=== PATIENT | female | born 1985 | race Caucasian/White ===

== ENCOUNTER → 2016-04-29 | Outpatient (CLI) | payer OTHER ==
[~2016-04-29] MED LIST: ADDERALL10 MG PO; ALDOMET250 MG PO; AMBIEN10 MG PO; ANAPROX DS550 MG PO; AUGMENTIN 875 M1 TA1 PO; AUGMENTIN 875 M1 TAB PO; BACTRIM DS 8001 TA1 PO; BENADRYL25 MG PO; CELEXA20 MG PO; CIPRO500 MG PO; CIPRODEX 0.3%-7.5 ML OT; CITALOPRAM HYDR20 MG PO; CLARITIN10 MG PO; CLEOCIN150 MG PO; CLINDA DERM T; CYCLOBENZAPRINE10 MG PO; DICLOFENAC POT.50 MG PO; FLAGYL500 MG PO; HYDR12.5C PO; IBU-8800 MG PO; IBU800 M1 PO; IBUPROFEN800 MG PO; INDERAL10 MG PO; K-DUR 20MEQ20 MEQ PO; K-EFFERVESCENT25 MEQ PO; KEFLEX500 MG PO; LISINOPRIL-HYDR1 TA3 PO; LISINOPRIL2.5 MG PO; LISINOPRIL20 MG PO; LOMOTIL 0.025 M1 TA1 PO; LOPRESSOR25 MG PO; Lopressor25 MG PO; MACROBID100 M1 PO; MIRALAX POWDER255 GM PO; MOTRIN800 MG PO; MYCELEX TROCHE10 MG MM; NAPROXEN500 MG PO; NATURE'S BLEND F1 MG PO; OMNICEF300 MG PO; PERCOCET 325 MG1 TA2 PO; POTASSIUM CITR10 ME1 PO; PRENATAL1 TA1 PO; PRENATAL1 TA7 PO; PRILOSEC20 M1 PO; PRISTIQ50 MG PO; PROTONIX20 MG PO; PROVENTIL0.09 MG/AC IH; PYRIDIUM200 M1 PO; PYRIDIUM200 MG PO; SALINE MIST 4545 ML NAS; Synthroid,Levo50 MCG PO; TAMIFLU75 MG PO; TRAMADOL HCL50 MG PO; TRAZODONE50 MG PO; TRIMOX500 MG PO; TYLENOL PM1 CAP PO; TYLENOL W/CODEI1 TA2 PO; ULTRAM50 MG PO; VICODIN 5/500 505 MG PO; VICODIN ES 7501 TAB PO; VISTARIL50 MG PO; VITAMIN D-32000 UNI1 PO; VYVANSE50 MG PO; WOMEN'S DAILY1 EAC2 PO; XANAX PO; XANAX0.5 MG PO; XANAX1 MG PO; ZITHROMAX Z PA250 MG PO; ZOFRAN ODT4 MG SL; ZOFRAN ODT8 MG PO; ZOFRAN4 MG PO; Zofran4 MG PO
[2016-04-29 09:23] LABS: BASO % 0.6 % (0.0-1.0); EOS # 0.3 10*3/uL (0.0-0.4); HEMOGLOBIN 14.6 g/dl (12.0-16.0); LYMPH # 2.2 10*3/uL (1.3-4.4); LYMPH % 32.6 % (27.0-41.0); MEAN CELL VOLUME 85.9 fl (81.0-99.0); MEAN CORPUSCULAR HGB 29.9 pg (27.0-31.0); MEAN CORPUSCULAR HGB CONC 34.8 g/dl (33.0-37.0); MEAN PLATELET VOLUME 10.8 fl (9.6-12.3); MONO # 0.8 10*3/uL (0.1-1.0); NEUT # 3.5 10*3/uL (2.3-7.9); NEUT % 51.5 % (47.0-73.0); PLATELET COUNT AUTOMATED 230 10*3/uL (130-400); RED BLOOD COUNT 4.89 10*6/uL (4.10-5.10); RED CELL DISTRI WIDTH 12.2 % (0-14.5); WHITE BLOOD COUNT 6.8 10*3/uL (4.8-10.8)
[2016-04-29 09:53] LABS: ALBUMIN 3.7 gm/dl (3.1-4.5); ALKALINE PHOSPHATASE 76 U/L (45-117); BILIRUBIN, TOTAL 0.2 mg/dl (0.2-1.0); BUN 11 mg/dl (7-24); CARBON DIOXIDE 27 mmol/L (21-32); CHLORIDE 104 mmol/L (98-107); CHOLESTEROL 124 mg/dL (<200); EST GLOM FILT AFRICAN AMERICAN > 60 ml/min; GLUCOSE 115 mg/dL (65-99); HDL CHOLESTEROL 37 mg/dl (40-60); LDL CHOLESTEROL 64 mg/dL (9-159); POTASSIUM 3.2 mmol/L (3.5-5.1); SGOT/AST 16 IU/L (3-35); SGPT/ALT 43 U/L (12-78); SODIUM 142 mmol/L (136-145); TRIGLYCERIDES 113 mg/dl (<150); VLDL CHOLESTEROL 23 mg/dL (6-40)
== END | disposition home or self-care (01) ==
LOC: LAB 08:46
PROVIDERS: Nurse Practitioner
DX: D35.2 Benign neoplasm of pituitary gland (principal); I10 Essential (primary) hypertension; E03.9 Hypothyroidism, unspecified

== ENCOUNTER 2016-08-25 15:48 | Emergency (ER) | payer OTHER ==
[~2016-08-25] VITALS: Ht 162.5 cm; Wt 81.6 kg
[2016-08-25] MEDS ORDERED: VITAMIN D50000 I3 PO (15:57)
[2016-08-25] MEDS ORDERED: WELLBUTRIN SR150 MG PO (15:58)
[2016-08-25] MEDS ORDERED: ADDERALL 30 MG30 MG PO (15:58)
[2016-08-25 16:26] LABS: BASO # 0.1 10*3/uL (0.0-0.1); BASO % 0.6 % (0.0-1.0); EOS # 0.3 10*3/uL (0.0-0.4); EOS % 3.5 % (1.0-4.0); HEMATOCRIT 42.5 % (37.0-47.0); LYMPH # 3.1 10*3/uL (1.3-4.4); LYMPH % 37.6 % (27.0-41.0); MEAN CELL VOLUME 88.7 fl (81.0-99.0); MEAN CORPUSCULAR HGB 31.3 pg (27.0-31.0); MEAN CORPUSCULAR HGB CONC 35.3 g/dl (33.0-37.0); MEAN PLATELET VOLUME 10.4 fl (9.6-12.3); MONO # 0.7 10*3/uL (0.1-1.0); MONO % 8.5 % (3.0-9.0); NEUT # 4.1 10*3/uL (2.3-7.9); NEUT % 49.6 % (47.0-73.0); PLATELET COUNT AUTOMATED 253 10*3/uL (130-400); RED BLOOD COUNT 4.79 10*6/uL (4.10-5.10); RED CELL DISTRI WIDTH 12.5 % (0-14.5); WHITE BLOOD COUNT 8.2 10*3/uL (4.8-10.8)
[2016-08-25 16:42] LABS: ALBUMIN 3.8 gm/dl (3.1-4.5); ALKALINE PHOSPHATASE 85 U/L (45-117); BILIRUBIN, TOTAL 0.5 mg/dl (0.2-1.0); BUN 9 mg/dl (7-24); CARBON DIOXIDE 23 mmol/L (21-32); CHLORIDE 107 mmol/L (98-107); EST GLOM FILT AFRICAN AMERICAN > 60 ml/min; GLUCOSE 85 mg/dL (65-99); POTASSIUM 3.1 mmol/L (3.5-5.1); SGOT/AST 18 IU/L (3-35); SGPT/ALT 44 U/L (12-78); SODIUM 141 mmol/L (136-145); TOTAL PROTEIN 7.5 gm/dL (6.4-8.2)
[2016-08-25 16:47] LABS: BILIRUBIN NEGATIVE (NEGATIVE); BLOOD NEGATIVE (NEGATIVE); CLARITY SL CLOUDY (CLEAR); COLOR YELLOW (YELLOW); GLUCOSE NEGATIVE (NEGATIVE); KETONE NEGATIVE (NEGATIVE); LEUKO ESTERASE NEGATIVE (NEGATIVE); NITRITE NEGATIVE (NEGATIVE); PROTEIN NEGATIVE (NEGATIVE); SPECIFIC GRAVITY 1.025 (1.005-1.030); UROBILINOGEN 0.2 E.U./dl (0.2-1.0)
[2016-08-25 16:55] LABS: BACTERIA 2+; RBC 0-2 rbc/hpf (0-2); URINE REFLEX COMMENT YES (NO)
[2016-08-25] MEDS ORDERED: NAPROSYN500 MG PO (17:26)
== END 2016-08-25 17:27 | disposition home or self-care (01) ==
LOC: ED 15:48
PROVIDERS: Physician Assistant
DX: R10.11 Right upper quadrant pain (principal); F17.200 Nicotine dependence, unspecified, uncomplicated; Z90.49 Acquired absence of other specified parts of digestive tract; Z88.6 Allergy status to analgesic agent; Z88.8 Allergy status to other drugs, medicaments and biological substances; Z91.040 Latex allergy status; Z79.899 Other long term (current) drug therapy

== ENCOUNTER → 2017-01-03 | Outpatient (CLI) | payer OTHER ==
[~2017-01-03] MED LIST changes: +ADDERALL 30 MG30 MG PO; +NAPROSYN500 MG PO; +VITAMIN D50000 I3 PO; +WELLBUTRIN SR150 MG PO
== END | disposition home or self-care (01) ==
LOC: US 10:18
DX: R94.5 Abnormal results of liver function studies (principal); Z90.49 Acquired absence of other specified parts of digestive tract

== ENCOUNTER → 2017-04-18 | Outpatient (CLI) | payer OTHER | END | disposition home or self-care (01) | LOC: CARD 10:18 | DX: I10 Essential (primary) hypertension (principal) ==

== ENCOUNTER 2019-02-19 17:24 | Emergency (ER) | payer OTHER ==
[~2019-02-19] VITALS: Ht 162.5 cm; Wt 84.4 kg
== END 2019-02-19 19:37 | disposition home or self-care (01) ==
LOC: ED 17:24
DX: N83.202 Unspecified ovarian cyst, left side (principal); N89.8 Other specified noninflammatory disorders of vagina; K21.9 Gastro-esophageal reflux disease without esophagitis; G43.909 Migraine, unspecified, not intractable, without status migrainosus; I10 Essential (primary) hypertension; E03.9 Hypothyroidism, unspecified; Z90.49 Acquired absence of other specified parts of digestive tract; Z90.710 Acquired absence of both cervix and uterus; Z88.5 Allergy status to narcotic agent; Z91.040 Latex allergy status; Z88.8 Allergy status to other drugs, medicaments and biological substances; Z79.899 Other long term (current) drug therapy; Z85.41 Personal history of malignant neoplasm of cervix uteri

== ENCOUNTER → 2019-03-06 | Outpatient (CLI) | payer OTHER | LOC: US 01-05 15:00 | DX: N83.292 Other ovarian cyst, left side (principal); Z90.710 Acquired absence of both cervix and uterus ==

== ENCOUNTER 2019-04-24 16:23 | Emergency (ER) | payer OTHER ==
[~2019-04-24] VITALS: Ht 160 cm; Wt 79.8 kg
[2019-04-24 17:47] LABS: BASO % 0.3 % (0.0-1.0); EOS # 0.3 10*3/uL (0.0-0.4); EOS % 2.8 % (1.0-4.0); HEMATOCRIT 41.8 % (37.0-47.0); HEMOGLOBIN 14.3 g/dl (12.0-16.0); LYMPH # 2.5 10*3/uL (1.3-4.4); LYMPH % 26.9 % (27.0-41.0); MEAN CELL VOLUME 89.7 fl (81.0-99.0); MEAN CORPUSCULAR HGB 30.7 pg (27.0-31.0); MEAN CORPUSCULAR HGB CONC 34.2 g/dl (33.0-37.0); MEAN PLATELET VOLUME 10.7 fl (9.6-12.3); MONO # 0.7 10*3/uL (0.1-1.0); MONO % 7.2 % (3.0-9.0); NEUT # 5.8 10*3/uL (2.3-7.9); NEUT % 62.4 % (47.0-73.0); PLATELET COUNT AUTOMATED 243 10*3/uL (130-400); RED BLOOD COUNT 4.66 10*6/uL (4.10-5.10); RED CELL DISTRI WIDTH 12.4 % (0-14.5); WHITE BLOOD COUNT 9.3 10*3/uL (4.8-10.8)
[2019-04-24 18:02] LABS: ALBUMIN 3.5 gm/dl (3.1-4.5); ALKALINE PHOSPHATASE 77 U/L (45-117); BUN 7 mg/dl (7-24); CHLORIDE 107 mmol/L (98-107); CREATININE 0.62 mg/dL (0.55-1.02); LIPASE 33 U/L (73-393); POTASSIUM 3.2 mmol/L (3.5-5.1); SGOT/AST 11 IU/L (3-35); SGPT/ALT 32 U/L (12-78); SODIUM 141 mmol/L (136-145); TOTAL PROTEIN 6.9 gm/dL (6.4-8.2)
[2019-04-24 18:34] LABS: BILIRUBIN NEGATIVE (NEGATIVE); BLOOD NEGATIVE (NEGATIVE); CLARITY SL CLOUDY (CLEAR); COLOR YELLOW (YELLOW); GLUCOSE NEGATIVE (NEGATIVE); KETONE NEGATIVE (NEGATIVE); LEUKO ESTERASE NEGATIVE (NEGATIVE); NITRITE NEGATIVE (NEGATIVE); PH 6.5 (5.0-9.0); UROBILINOGEN 0.2 E.U./dl (0.2-1.0)
[2019-04-24 18:40] LABS: BACTERIA 2+; MUCOUS 3+; WBC 0-2 wbc/hpf (0-5)
[2019-04-24] MEDS ORDERED: DICYCLOMINE HYD20 MG PO (19:00)
[2019-04-24] MEDS ORDERED: ANAPROX DS550 MG PO (19:00)
[2019-04-24] MEDS ORDERED: ZOFRAN4 MG PO (19:02)
== END 2019-04-24 19:11 | disposition home or self-care (01) ==
LOC: ED 16:23
PROVIDERS: Physician Assistant
DX: N83.201 Unspecified ovarian cyst, right side (principal); Z88.8 Allergy status to other drugs, medicaments and biological substances; Z91.040 Latex allergy status; Z88.5 Allergy status to narcotic agent; Z79.899 Other long term (current) drug therapy

== ENCOUNTER → 2019-08-15 | Outpatient (CLI) | payer OTHER ==
[~2019-08-15] MED LIST changes: +DICYCLOMINE HYD20 MG PO
== END | disposition home or self-care (01) ==
LOC: US 07-26 10:30
DX: N83.202 Unspecified ovarian cyst, left side (principal)

== ENCOUNTER → 2019-10-10 | Outpatient (CLI) | payer OTHER | END | disposition home or self-care (01) | LOC: RAD 10:42 | PROVIDERS: ATTEND Nurse Practitioner Family | DX: R05 Cough (principal); R06.2 Wheezing ==

== ENCOUNTER 2019-11-05 09:00 | Emergency (ER) | payer OTHER ==
[2019-11-05] MEDS ORDERED: METHOCARBAMOL500 M1 PO (11:31)
[2019-11-05] MEDS ORDERED: MEDROL DOSEPAK4 MG PO (11:31)
== END 2019-11-05 11:40 | disposition home or self-care (01) ==
LOC: ED 09:00
DX: S16.1XXA Strain of muscle, fascia and tendon at neck level, initial encounter (principal); Z88.5 Allergy status to narcotic agent; Z91.040 Latex allergy status; Z88.8 Allergy status to other drugs, medicaments and biological substances; Z79.899 Other long term (current) drug therapy; Z79.2 Long term (current) use of antibiotics; V89.2XXA Person injured in unspecified motor-vehicle accident, traffic, initial encounter; Y93.89 Activity, other specified; Y92.89 Other specified places as the place of occurrence of the external cause; Y99.8 Other external cause status

== ENCOUNTER → 2020-02-21 | Outpatient (CLI) | payer OTHER ==
[~2020-02-21] MED LIST changes: +BUSPAR15 MG PO; +LATU20TA PO; +LINZESS145 MC1 PO; +MEDROL DOSEPAK4 MG PO; +METHOCARBAMOL500 M1 PO; +Motrin,Rufen800 MG PO; +VALIUM10 MG PO; +VYVANSE30 MG PO
== END | disposition home or self-care (01) ==
LOC: COVID19 13:46
PROVIDERS: ATTEND Obstetrics & Gynecology
DX: Z11.52 Encounter for screening for COVID-19 (principal)

== ENCOUNTER → 2020-02-21 | Outpatient (CLI) | payer OTHER ==
[2020-02-21 14:12] LABS: HEMATOCRIT 45.4 % (37.0-47.0); MEAN CELL VOLUME 85.8 fl (81.0-99.0); MEAN CORPUSCULAR HGB 29.9 pg (27.0-31.0); MEAN CORPUSCULAR HGB CONC 34.8 g/dl (33.0-37.0); MEAN PLATELET VOLUME 10.4 fl (9.6-12.3); PLATELET COUNT AUTOMATED 332 10*3/uL (130-400); RED BLOOD COUNT 5.29 10*6/uL (4.10-5.10); RED CELL DISTRI WIDTH 11.8 % (0-14.5); WHITE BLOOD COUNT 11.7 10*3/uL (4.8-10.8)
[2020-02-21 14:20] LABS: ALBUMIN 4.2 gm/dl (3.1-4.5); ALKALINE PHOSPHATASE 73 U/L (45-117); BUN 7 mg/dl (7-24); CHLORIDE 106 mmol/L (98-107); CREATININE 0.59 mg/dL (0.55-1.02); POTASSIUM 3.5 mmol/L (3.5-5.1); SGOT/AST 17 IU/L (3-35); SGPT/ALT 48 U/L (12-78); SODIUM 139 mmol/L (136-145); TOTAL PROTEIN 7.9 gm/dL (6.4-8.2)
[2020-02-21 14:31] LABS: ATYPICAL LYMPHS 4 % (0-0); PLATELET SUFFICIENCY NORMAL (NORMAL); TOTAL CELLS COUNTED 100 #CELLS
[2020-02-21 14:32] LABS: MICROCYTOSIS SLIGHT
== END | disposition home or self-care (01) ==
LOC: LAB 12:40
PROVIDERS: ATTEND Obstetrics & Gynecology
DX: R10.2 Pelvic and perineal pain (principal); J94.8 Other specified pleural conditions

== ENCOUNTER → 2020-02-25 | Outpatient (CLI) | payer OTHER | END | disposition home or self-care (01) | LOC: CARD 13:30 | PROVIDERS: ATTEND Obstetrics & Gynecology | DX: Z01.810 Encounter for preprocedural cardiovascular examination (principal); N94.10 Unspecified dyspareunia; R10.2 Pelvic and perineal pain ==

== ENCOUNTER → 2020-02-26 | Day surgery (SDC) | payer OTHER ==
[2020-02-21 13:02] VITALS: BP 118/73
[~2020-02-26] VITALS: Ht 162.5 cm; Wt 82.6 kg
[2020-02-26 07:11] VITALS: BP 127/81
[2020-02-26 09:07] VITALS: BP 130/64
[2020-02-26 09:12] VITALS: BP 135/81
[2020-02-26 09:27] VITALS: BP 123/71
[2020-02-26 09:42] VITALS: BP 119/47
[2020-02-26 09:57] VITALS: BP 123/71
== END ==
LOC: SDC 02-21 12:30
PROVIDERS: ATTEND Obstetrics & Gynecology
DX: N94.10 Unspecified dyspareunia (principal); N80.0 Endometriosis of uterus; R10.2 Pelvic and perineal pain; G89.29 Other chronic pain; K21.9 Gastro-esophageal reflux disease without esophagitis; F41.9 Anxiety disorder, unspecified; I10 Essential (primary) hypertension; G43.909 Migraine, unspecified, not intractable, without status migrainosus; F32.9 Major depressive disorder, single episode, unspecified; F90.9 Attention-deficit hyperactivity disorder, unspecified type; E03.9 Hypothyroidism, unspecified; Z79.899 Other long term (current) drug therapy

== ENCOUNTER → 2020-07-14 | Outpatient (CLI) | payer OTHER | END | disposition home or self-care (01) | LOC: RAD 11:06 | PROVIDERS: ATTEND Nurse Practitioner Family | DX: R10.9 Unspecified abdominal pain (principal); Z98.890 Other specified postprocedural states ==

== ENCOUNTER → 2020-08-21 | Outpatient (CLI) | payer OTHER | END | disposition home or self-care (01) | LOC: MAMMO 10:00 | PROVIDERS: ATTEND Nurse Practitioner Family | DX: N63.20 Unspecified lump in the left breast, unspecified quadrant (principal); Z12.31 Encounter for screening mammogram for malignant neoplasm of breast ==

== ENCOUNTER → 2020-11-04 | Outpatient (CLI) | payer OTHER ==
[2020-11-04 21:03] LABS: URINE AMPHETAMINES < 1000 (1000ng/ml); URINE BARBITURATES < 200 (200ng/ml); URINE BENZODIAZEPINES < 200 (200ng/ml); URINE CANNABINOIDS (THC) < 50 (50ng/ml); URINE COCAINE < 300 (300ng/ml); URINE METHADONE < 300 (300ng/ml); URINE OPIATES < 300 (300ng/ml)
[2020-11-04 21:05] LABS: URINE PHENCYCLIDINE < 25 (25ng/ml)
== END | disposition home or self-care (01) ==
LOC: LAB 15:47
PROVIDERS: ATTEND Registered Nurse Psychiatric/Mental Health
DX: F50.81 Binge eating disorder (principal)

== ENCOUNTER → 2020-11-21 | Outpatient (CLI) | payer OTHER ==
[2020-11-21 13:36] LABS: HEMATOCRIT 43.9 % (37.0-47.0); MEAN CELL VOLUME 86.8 fl (81.0-99.0); MEAN CORPUSCULAR HGB CONC 34.6 g/dl (33.0-37.0); MEAN PLATELET VOLUME 10.4 fl (9.6-12.3); RED BLOOD COUNT 5.06 10*6/uL (4.10-5.10); WHITE BLOOD COUNT 10.1 10*3/uL (4.8-10.8)
[2020-11-21 13:52] LABS: ALBUMIN 3.8 gm/dl (3.1-4.5); ALKALINE PHOSPHATASE 70 U/L (45-117); BUN 10 mg/dl (7-24); CHLORIDE 110 mmol/L (98-107); CHOLESTEROL 171 mg/dL (<200); CREATININE 0.84 mg/dL (0.55-1.02); FREE T4 0.82 ng/dl (0.76-1.46); POTASSIUM 3.4 mmol/L (3.5-5.1); SGOT/AST 19 IU/L (3-35); SGPT/ALT 53 U/L (12-78); SODIUM 142 mmol/L (136-145); TOTAL PROTEIN 7.6 gm/dL (6.4-8.2); TRIGLYCERIDES 447 mg/dl (<150)
[2020-11-21 13:57] LABS: THYROID STIM HORMONE (HS) 0.697 uIU/ml (0.358-4.75)
[2020-11-21 14:45] LABS: VITAMIN D, 25-HYDROXY 28.3 ng/mL (30-100)
[2020-11-22 08:08] LABS: FOLLICLE STIMULATING HORMONE 3.4 mIU/mL (.); LUTEINIZING HORMONE 6.5 mIU/mL (.)
[2020-11-26 11:07] LABS: TESTOSTERONE FREE, (DIRECT) 4.3 pg/mL (0.0-4.2)
== END | disposition home or self-care (01) ==
LOC: LAB 13:14
PROVIDERS: ATTEND Family Medicine
DX: Z13.220 Encounter for screening for lipoid disorders (principal); Z00.00 Encounter for general adult medical examination without abnormal findings; E55.9 Vitamin D deficiency, unspecified; R53.83 Other fatigue; Z72.0 Tobacco use; F41.1 Generalized anxiety disorder; E06.3 Autoimmune thyroiditis; F43.9 Reaction to severe stress, unspecified

== ENCOUNTER → 2020-12-22 | Day surgery (SDC) | payer OTHER ==
[~2020-12-22] VITALS: Ht 160 cm; Wt 88.9 kg
[~2020-12-22] MED LIST changes: +ABILIFY10 MG PO; +IBU800 M2 PO; +POTASSIUM CHLO20 ME3 PO; +TOPROL XL100 MG PO; +VITAMIN D250 MC1 PO
[2020-12-22 07:15] VITALS: BP 121/76
[2020-12-22 08:00] VITALS: BP 144/97
[2020-12-22 08:15] VITALS: BP 141/99
[2020-12-22 08:35] VITALS: BP 139/88
== END | disposition home or self-care (01) ==
LOC: SDC 12-11 13:15
PROVIDERS: ATTEND Surgery
DX: D48.5 Neoplasm of uncertain behavior of skin (principal); K21.9 Gastro-esophageal reflux disease without esophagitis; F41.9 Anxiety disorder, unspecified; I10 Essential (primary) hypertension; F32.9 Major depressive disorder, single episode, unspecified; F90.9 Attention-deficit hyperactivity disorder, unspecified type; Z90.49 Acquired absence of other specified parts of digestive tract; F17.210 Nicotine dependence, cigarettes, uncomplicated; Z79.899 Other long term (current) drug therapy; Z20.822 Contact with and (suspected) exposure to COVID-19

== ENCOUNTER → 2021-01-07 | Outpatient (CLI) | payer OTHER ==
[2021-01-07 09:44] LABS: BASO # 0.1 10*3/uL (0.0-0.1); BASO % 0.7 % (0.0-1.0); EOS # 0.3 10*3/uL (0.0-0.4); HEMATOCRIT 43.1 % (37.0-47.0); LYMPH # 2.6 10*3/uL (1.3-4.4); LYMPH % 38.7 % (27.0-41.0); MEAN CELL VOLUME 86.9 fl (81.0-99.0); MEAN CORPUSCULAR HGB 29.6 pg (27.0-31.0); MEAN CORPUSCULAR HGB CONC 34.1 g/dl (33.0-37.0); MEAN PLATELET VOLUME 10.5 fl (9.6-12.3); MONO # 0.6 10*3/uL (0.1-1.0); MONO % 8.8 % (3.0-9.0); NEUT # 3.2 10*3/uL (2.3-7.9); NEUT % 47.2 % (47.0-73.0); PLATELET COUNT AUTOMATED 260 10*3/uL (130-400); RED BLOOD COUNT 4.96 10*6/uL (4.10-5.10); WHITE BLOOD COUNT 6.8 10*3/uL (4.8-10.8)
[2021-01-07 10:01] LABS: ALBUMIN 3.5 gm/dl (3.1-4.5); BUN 9 mg/dl (7-24); CHLORIDE 108 mmol/L (98-107); CHOLESTEROL 182 mg/dL (<200); CREATININE 0.64 mg/dL (0.55-1.02); POTASSIUM 3.8 mmol/L (3.5-5.1); SGOT/AST 19 IU/L (3-35); SGPT/ALT 65 U/L (12-78); SODIUM 140 mmol/L (136-145); TRIGLYCERIDES 239 mg/dl (<150)
[2021-01-07 10:03] LABS: ALKALINE PHOSPHATASE 70 U/L (45-117); LDL CHOLESTEROL 102 mg/dL (9-159)
[2021-01-08 04:06] LABS: RHEUMATOID ARTHRITIS FACTOR <10.0 IU/mL (<14.0)
[2021-01-08 05:06] LABS: HEP B CORE AB, IGM Negative (Negative); HEPATITIS B SURFACE AG Negative (Negative); HEPATITIS C VIRUS ANTIBODY <0.1 s/co (0.0-0.9)
[2021-01-09 00:06] LABS: CCP ANTIBODIES IGG/IGA 6 units (0-19)
== END | disposition home or self-care (01) ==
LOC: LAB 09:09
PROVIDERS: Family Medicine; ATTEND Registered Nurse Psychiatric/Mental Health
DX: F31.9 Bipolar disorder, unspecified (principal)

== ENCOUNTER → 2021-05-12 | Outpatient (CLI) | payer OTHER ==
[2021-05-13 09:07] LABS: HEP B CORE AB, IGM Negative (Negative); HEPATITIS B SURFACE AG Negative (Negative); HEPATITIS C VIRUS ANTIBODY <0.1 s/co (0.0-0.9)
== END | disposition home or self-care (01) ==
LOC: LAB 14:23
PROVIDERS: ATTEND Family Medicine
DX: Z20.5 Contact with and (suspected) exposure to viral hepatitis (principal)

== ENCOUNTER → 2021-05-21 | Outpatient (CLI) | payer OTHER | END | disposition home or self-care (01) | LOC: CT 12:54 | PROVIDERS: ATTEND Family Medicine | DX: K76.0 Fatty (change of) liver, not elsewhere classified (principal); K86.2 Cyst of pancreas; K51.90 Ulcerative colitis, unspecified, without complications ==

== ENCOUNTER → 2021-08-21 | Day surgery (SDC) | payer OTHER ==
[~2021-08-21] VITALS: Ht 160 cm; Wt 83.5 kg
[~2021-08-21] MED LIST changes: +ADDERALL 20 MG20 MG PO; +ATIVAN1 MG PO; +COLACE100 MG PO; +ONDANSETRON HYDR4 M1 PO; +PERCOCET 5-3251 EACH PO; +SAPHRIS10 M1 SL; +TOPAMAX50 MG PO
[2021-08-21 06:45] VITALS: BP 138/77
[2021-08-21 08:30] VITALS: BP 135/89
[2021-08-21 08:45] VITALS: BP 139/88
[2021-08-21 09:00] VITALS: BP 121/85
[2021-08-21 09:15] VITALS: BP 127/90
[2021-08-21 09:28] VITALS: BP 119/96
== END | disposition home or self-care (01) ==
LOC: SDC 08-13 14:00
PROVIDERS: ATTEND Surgery
DX: K43.0 Incisional hernia with obstruction, without gangrene (principal); I10 Essential (primary) hypertension; F41.9 Anxiety disorder, unspecified; K21.9 Gastro-esophageal reflux disease without esophagitis; F90.9 Attention-deficit hyperactivity disorder, unspecified type; F32.9 Major depressive disorder, single episode, unspecified; F17.210 Nicotine dependence, cigarettes, uncomplicated; Z90.89 Acquired absence of other organs; Z88.0 Allergy status to penicillin; Z88.5 Allergy status to narcotic agent; Z90.49 Acquired absence of other specified parts of digestive tract; Z90.710 Acquired absence of both cervix and uterus; Z98.890 Other specified postprocedural states

== ENCOUNTER → 2021-11-03 | Outpatient (CLI) | payer OTHER ==
[2021-11-03 09:30] LABS: HEMATOCRIT 43.1 % (37.0-47.0); MEAN CORPUSCULAR HGB 30.7 pg (27.0-31.0); MEAN CORPUSCULAR HGB CONC 35.7 g/dl (33.0-37.0); MEAN PLATELET VOLUME 10.8 fl (9.6-12.3); RED BLOOD COUNT 5.01 10*6/uL (4.10-5.10); RED CELL DISTRI WIDTH 12.2 % (0-14.5); WHITE BLOOD COUNT 10.9 10*3/uL (4.8-10.8)
[2021-11-03 09:51] LABS: ALKALINE PHOSPHATASE 76 U/L (45-117); BUN 9 mg/dl (7-24); CHLORIDE 111 mmol/L (98-107); CREATININE 0.73 mg/dL (0.55-1.02); POTASSIUM 3.7 mmol/L (3.5-5.1); SGOT/AST 10 IU/L (3-35); SGPT/ALT 29 U/L (12-78); SODIUM 141 mmol/L (136-145); TOTAL PROTEIN 7.3 gm/dL (6.4-8.2)
[2021-11-04 05:06] LABS: HBSAG Negative (Negative); HEP B CORE AB, IGM Negative (Negative); HEPATITIS C ANTIBODY <0.1 (0.0-0.9)
[2021-11-05 16:07] LABS: HEPATITIS C QUANTITATION HCV Not Detected IU/mL (.)
== END | disposition home or self-care (01) ==
LOC: LAB 08:54
PROVIDERS: ATTEND Family Medicine
DX: K75.9 Inflammatory liver disease, unspecified (principal); L03.90 Cellulitis, unspecified

== ENCOUNTER → 2022-06-23 | Outpatient (CLI) | payer OTHER ==
[2022-06-23 15:39] LABS: HEMATOCRIT 47.9 % (37.0-47.0); MEAN CELL VOLUME 85.5 fl (81.0-99.0); MEAN CORPUSCULAR HGB 30.9 pg (27.0-31.0); MEAN CORPUSCULAR HGB CONC 36.1 g/dl (33.0-37.0); MEAN PLATELET VOLUME 10.5 fl (9.6-12.3); RED BLOOD COUNT 5.6 10*6/uL (4.10-5.10); WHITE BLOOD COUNT 12.3 10*3/uL (4.8-10.8)
[2022-06-23 16:04] LABS: ALKALINE PHOSPHATASE 83 U/L (46-116); BUN 6 mg/dl (9-23); CHLORIDE 103 mmol/L (98-107); CHOLESTEROL 201 mg/dL (<200); LDL CHOLESTEROL 107 mg/dL (9-159); SGPT/ALT 30 U/L (10-49); TOTAL PROTEIN 8.4 gm/dL (6.0-8.0); TRIGLYCERIDES 221 mg/dl (<150)
[2022-06-23 16:06] LABS: VITAMIN D, 25-HYDROXY 29.1 ng/mL (30-100)
[2022-06-24 06:08] LABS: MUMPS ANTIBODIES, IGG 87.2 AU/mL (Immune >10.9); RUBEOLA AB IGG 83.7 AU/mL (Immune >16.4); VARICELLA-ZOSTER IGG 1532 index (Immune >165)
[2022-06-24 07:07] LABS: HEPATITIS B SURFACE AB Non Reactive (.); HEPATITIS B SURFACE AG Negative (Negative)
[2022-06-24 09:07] LABS: HBSAG Negative (Negative); HEP B CORE AB, IGM Negative (Negative); HEPATITIS C ANTIBODY Non Reactive (Non Reactive)
== END | disposition home or self-care (01) ==
LOC: LAB 15:13
PROVIDERS: ATTEND Family Medicine
DX: Z02.0 Encounter for examination for admission to educational institution (principal); I10 Essential (primary) hypertension; E55.9 Vitamin D deficiency, unspecified; K58.9 Irritable bowel syndrome, unspecified; R53.83 Other fatigue

== ENCOUNTER 2022-08-14 20:41 | Emergency (ER) | payer OTHER ==
[2022-08-14] MEDS ORDERED: DIAZEPAM5 MG PO (21:20)
[2022-08-14] MEDS ORDERED: RESTORIL30 M1 PO (21:20)
[2022-08-14] MEDS ORDERED: NAPROXEN250 MG PO (22:00)
== END 2022-08-14 22:05 | disposition home or self-care (01) ==
LOC: ED 20:41
DX: S30.0XXA Contusion of lower back and pelvis, initial encounter (principal); S00.83XA Contusion of other part of head, initial encounter; S90.01XA Contusion of right ankle, initial encounter; K21.9 Gastro-esophageal reflux disease without esophagitis; F41.9 Anxiety disorder, unspecified; G43.909 Migraine, unspecified, not intractable, without status migrainosus; I10 Essential (primary) hypertension; F32.A Depression, unspecified; F90.9 Attention-deficit hyperactivity disorder, unspecified type; E03.9 Hypothyroidism, unspecified; Z88.1 Allergy status to other antibiotic agents; Z88.5 Allergy status to narcotic agent; Z91.040 Latex allergy status; Z88.8 Allergy status to other drugs, medicaments and biological substances; Z90.710 Acquired absence of both cervix and uterus; Z90.49 Acquired absence of other specified parts of digestive tract; Z98.890 Other specified postprocedural states; Y08.89XA Assault by other specified means, initial encounter; Y93.89 Activity, other specified; Y92.009 Unspecified place in unspecified non-institutional (private) residence as the place of occurrence of the external cause; Y99.8 Other external cause status

== ENCOUNTER → 2022-11-15 | Outpatient (CLI) | payer OTHER ==
[~2022-11-15] MED LIST changes: +DIAZEPAM5 MG PO; +NAPROXEN250 MG PO; +RESTORIL30 M1 PO
[2022-11-15 10:11] LABS: HEMATOCRIT 46.6 % (37.0-47.0); MEAN CELL VOLUME 85.8 fl (81.0-99.0); MEAN CORPUSCULAR HGB 31.3 pg (27.0-31.0); MEAN CORPUSCULAR HGB CONC 36.5 g/dl (33.0-37.0); MEAN PLATELET VOLUME 10.8 fl (9.6-12.3); RED BLOOD COUNT 5.43 10*6/uL (4.10-5.10); RED CELL DISTRI WIDTH 11.9 % (0-14.5); WHITE BLOOD COUNT 11.7 10*3/uL (4.8-10.8)
[2022-11-15 10:44] LABS: ALKALINE PHOSPHATASE 72 U/L (46-116); BUN 7 mg/dl (9-23); CHLORIDE 105 mmol/L (98-107); CHOLESTEROL 176 mg/dL (<200); CPK 40 U/L (34-171); FREE T4 1.03 ng/dl (0.89-1.76); LDL CHOLESTEROL 98 mg/dL (9-159); POTASSIUM 3.6 mmol/L (3.4-5.1); SGPT/ALT 43 U/L (10-49); TOTAL PROTEIN 7.6 gm/dL (6.0-8.0); TRIGLYCERIDES 172 mg/dl (<150)
[2022-11-15 11:43] LABS: VITAMIN D, 25-HYDROXY 35.8 ng/mL (30-100)
[2022-11-16 08:09] LABS: HEPATITIS B SURFACE AG Negative (Negative)
== END | disposition home or self-care (01) ==
LOC: LAB 09:49
PROVIDERS: ATTEND Family Medicine
DX: I10 Essential (primary) hypertension (principal); E78.00 Pure hypercholesterolemia, unspecified; R53.83 Other fatigue; E11.9 Type 2 diabetes mellitus without complications; R60.9 Edema, unspecified; G47.33 Obstructive sleep apnea (adult) (pediatric)

== ENCOUNTER 2023-03-22 12:47 | Emergency (ER) | payer OTHER ==
[~2023-03-22] VITALS: Ht 162.5 cm; Wt 90.7 kg
[2023-03-22] MEDS ORDERED: POTASSIUM CHLO20 MEQ PO (12:57)
[2023-03-22] MEDS ORDERED: VALIUM10 MG PO (12:57)
[2023-03-22] MEDS ORDERED: SODIUM CHLORIDE 0.9% 1,000 ML IV ONE (13:35)
[2023-03-22] MEDS ORDERED: Ondansetron Hydrochloride 4 MG/2 ML VIAL IV ONE (13:35)
[2023-03-22 13:52] LABS: BASO # 0.1 10*3/uL (0.0-0.1); BASO % 0.7 % (0.0-1.0); EOS # 0.1 10*3/uL (0.0-0.4); EOS % 1.5 % (1.0-4.0); HEMATOCRIT 43.6 % (37.0-47.0); LYMPH # 2.3 10*3/uL (1.3-4.4); LYMPH % 26.1 % (27.0-41.0); MEAN CELL VOLUME 87.9 fl (81.0-99.0); MEAN CORPUSCULAR HGB 30.4 pg (27.0-31.0); MEAN CORPUSCULAR HGB CONC 34.6 g/dl (33.0-37.0); MEAN PLATELET VOLUME 10.4 fl (9.6-12.3); MONO # 0.6 10*3/uL (0.1-1.0); MONO % 6.9 % (3.0-9.0); NEUT # 5.7 10*3/uL (2.3-7.9); NEUT % 64.5 % (47.0-73.0); PLATELET COUNT AUTOMATED 271 10*3/uL (130-400); RED BLOOD COUNT 4.96 10*6/uL (4.10-5.10); RED CELL DISTRI WIDTH 12.2 % (0-14.5); WHITE BLOOD COUNT 8.9 10*3/uL (4.8-10.8)
[2023-03-22 14:14] LABS: ACT PARTIAL THROMBO TIME 28.9 SECONDS (20.0-32.1)
[2023-03-22 14:17] LABS: ALKALINE PHOSPHATASE 64 U/L (46-116); BUN 5 mg/dl (9-23); CHLORIDE 108 mmol/L (98-107); LIPASE 25 U/L (12-53); POTASSIUM 3.2 mmol/L (3.4-5.1); SGPT/ALT 69 U/L (5-49); TOTAL PROTEIN 7.2 gm/dL (6.0-8.0)
[2023-03-22] MEDS ORDERED: ACETAMINOPHEN 325 MG TAB PO ONE (14:35)
[2023-03-22] MEDS ORDERED: Ketorolac Tromethamine 30 MG/ML VIAL IV ONE ×2 (14:35→15:20)
== END 2023-03-22 19:26 | disposition home or self-care (01) ==
LOC: ED 12:47
PROVIDERS: Emergency Medicine
DX: R07.89 Other chest pain (principal); R11.0 Nausea; R42 Dizziness and giddiness; K21.9 Gastro-esophageal reflux disease without esophagitis; F41.9 Anxiety disorder, unspecified; G43.909 Migraine, unspecified, not intractable, without status migrainosus; I10 Essential (primary) hypertension; F90.9 Attention-deficit hyperactivity disorder, unspecified type; F32.A Depression, unspecified; Z88.1 Allergy status to other antibiotic agents; Z88.5 Allergy status to narcotic agent; Z91.040 Latex allergy status; Z88.8 Allergy status to other drugs, medicaments and biological substances; Z90.711 Acquired absence of uterus with remaining cervical stump; Z90.49 Acquired absence of other specified parts of digestive tract; Z90.710 Acquired absence of both cervix and uterus; Z98.890 Other specified postprocedural states

== ENCOUNTER → 2023-05-13 | Outpatient (CLI) | payer OTHER ==
[~2023-05-13] MED LIST changes: +POTASSIUM CHLO20 MEQ PO
[2023-05-13 09:29] LABS: HEMATOCRIT 46.1 % (37.0-47.0); MEAN CELL VOLUME 86.5 fl (81.0-99.0); MEAN CORPUSCULAR HGB 30.8 pg (27.0-31.0); MEAN CORPUSCULAR HGB CONC 35.6 g/dl (33.0-37.0); MEAN PLATELET VOLUME 11.2 fl (9.6-12.3); RED BLOOD COUNT 5.33 10*6/uL (4.10-5.10); RED CELL DISTRI WIDTH 12.1 % (0-14.5); WHITE BLOOD COUNT 9.6 10*3/uL (4.8-10.8)
[2023-05-13 10:12] LABS: ALKALINE PHOSPHATASE 68 U/L (46-116); BUN 7 mg/dl (9-23); CHLORIDE 106 mmol/L (98-107); POTASSIUM 3.8 mmol/L (3.4-5.1); SGPT/ALT 70 U/L (5-49); TOTAL PROTEIN 7.4 gm/dL (6.0-8.0)
[2023-05-14 05:06] LABS: HBSAG Negative (Negative); HEP B CORE AB, IGM Negative (Negative); HEPATITIS C ANTIBODY Non Reactive (Non Reactive)
[2023-05-14 20:07] LABS: HEPATITIS C QUANTITATION HCV Not Detected IU/mL (.)
== END | disposition home or self-care (01) ==
LOC: LAB 08:46
PROVIDERS: ATTEND Family Medicine
DX: I10 Essential (primary) hypertension (principal); O92.6 Galactorrhea

== ENCOUNTER → 2023-06-16 | Outpatient (CLI) | payer OTHER | END | disposition home or self-care (01) | LOC: LAB 08:19 | PROVIDERS: ATTEND Family Medicine | DX: E74.9 Disorder of carbohydrate metabolism, unspecified (principal); R73.01 Impaired fasting glucose ==

== ENCOUNTER → 2023-07-01 | Outpatient (CLI) | payer OTHER ==
[2023-07-01 12:25] LABS: FREE T4 1.13 ng/dl (0.89-1.76); T3 UPTAKE 27.4 % (22.4-36.7)
== END | disposition home or self-care (01) ==
LOC: LAB 11:11
PROVIDERS: ATTEND Nurse Practitioner Family
DX: R19.7 Diarrhea, unspecified (principal); R10.9 Unspecified abdominal pain; R53.83 Other fatigue

== ENCOUNTER → 2023-08-25 | Outpatient (CLI) | payer OTHER ==
[2023-08-25 10:28] LABS: LIPASE 29 U/L (12-53)
[2023-08-26 06:09] LABS: CA 19-9 6 U/mL (0-35)
[2023-08-26 17:07] LABS: t-TRANSGLUTAMINASE (tTG) IGA <2 U/mL (0-3); t-TRANSGLUTAMINASE (tTG) IgG 3 U/mL (0-5)
[2023-08-31 20:07] LABS: DQ2 Negative (.); DQ8 Positive (.)
== END | disposition home or self-care (01) ==
LOC: LAB 09:37
PROVIDERS: ATTEND Nurse Practitioner Family
DX: R11.0 Nausea (principal); K86.2 Cyst of pancreas; R10.84 Generalized abdominal pain; R10.30 Lower abdominal pain, unspecified

== ENCOUNTER → 2023-12-01 | Outpatient (CLI) | payer OTHER | END | disposition home or self-care (01) | LOC: MAMMO 09:49 | PROVIDERS: ATTEND Family Medicine | DX: N60.02 Solitary cyst of left breast (principal); N63.20 Unspecified lump in the left breast, unspecified quadrant ==

== ENCOUNTER → 2023-12-12 | Outpatient (CLI) | payer OTHER ==
[2023-12-12 08:48] LABS: FREE T4 1.13 ng/dl (0.89-1.76)
[2023-12-12 11:23] LABS: VITAMIN D, 25-HYDROXY 24.2 ng/mL (30-100)
== END | disposition home or self-care (01) ==
LOC: LAB 08:01
PROVIDERS: ATTEND Family Medicine
DX: I10 Essential (primary) hypertension (principal); E55.9 Vitamin D deficiency, unspecified; R53.83 Other fatigue; M79.10 Myalgia, unspecified site; M25.559 Pain in unspecified hip; R63.5 Abnormal weight gain; M25.59 Pain in other specified joint

== ENCOUNTER 2024-05-19 11:47 | Emergency (ER) | payer OTHER ==
[~2024-05-19] VITALS: Ht 160 cm; Wt 89.8 kg
[2024-05-19] MEDS ORDERED: CLINDAMYCIN HC300 MG PO (12:18)
[2024-05-19] MEDS ORDERED: PREMARIN30 GM TD (12:18)
== END 2024-05-19 12:33 | disposition home or self-care (01) ==
LOC: ED 11:47
DX: N76.0 Acute vaginitis (principal); Z90.710 Acquired absence of both cervix and uterus; Z88.1 Allergy status to other antibiotic agents; Z88.5 Allergy status to narcotic agent; Z91.040 Latex allergy status; Z88.8 Allergy status to other drugs, medicaments and biological substances; Z79.899 Other long term (current) drug therapy

== ENCOUNTER → 2024-11-01 | Outpatient (CLI) | payer OTHER ==
[~2024-11-01] MED LIST changes: +CLINDAMYCIN HC300 MG PO; +PREMARIN30 GM TD
== END | disposition home or self-care (01) ==
LOC: LAB 08:10
PROVIDERS: ATTEND Family Medicine
DX: R06.02 Shortness of breath (principal); R05.9 Cough, unspecified; E74.9 Disorder of carbohydrate metabolism, unspecified

== ENCOUNTER 2024-11-05 16:52 | Emergency (ER) | payer OTHER ==
[~2024-11-05] VITALS: Ht 157.4 cm; Wt 81.6 kg
[2024-11-05] MEDS ORDERED: fentaNYL CITRATE/PF 50 MCG/ML SYRINGE IV ONE ×2 (17:15→17:30)
[2024-11-05] MEDS ORDERED: Ondansetron Hydrochloride 4 MG/2 ML VIAL IV ONE ×2 (17:15→17:30)
[2024-11-05] MEDS ORDERED: SODIUM CHLORIDE 0.9% 1,000 ML IV ONE (17:15)
[2024-11-05 17:31] LABS: BASO # 0.1 10*3/uL (0.0-0.1); BASO % 0.7 % (0.0-1.0); EOS # 0.2 10*3/uL (0.0-0.4); EOS % 1.7 % (1.0-4.0); MEAN CELL VOLUME 84.8 fl (81.0-99.0); MEAN CORPUSCULAR HGB 30.9 pg (27.0-31.0); MEAN PLATELET VOLUME 10.5 fl (9.6-12.3); MONO # 0.8 10*3/uL (0.1-1.0); MONO % 6.7 % (3.0-9.0); NEUT # 7.2 10*3/uL (2.3-7.9); NEUT % 58.6 % (47.0-73.0); NUCLEATED RED BLOOD CELL 0.0 % (0.0-0.0); NUCLEATED RED BLOOD CELL 0.0 10*3/uL (0.0-0.0); PLATELET COUNT AUTOMATED 272 10*3/uL (130-400); RED CELL DISTRI WIDTH 11.8 % (0-14.5); VENOUS BLOOD GAS O2 SAT 98.0 % (60.0-85.0)
[2024-11-05 17:54] LABS: BILIRUBIN Negative (Negative); BLOOD Negative (Negative); CLARITY Clear (Clear); COLOR Yellow (Yellow); KETONE 1+ (Negative); LEUKO ESTERASE Negative (Negative); NITRITE Negative (Negative); PH 5.5 (4.5-8.0); SPECIFIC GRAVITY >= 1.030 (1.001-1.030); UROBILINOGEN 0.2 E.U./dl (0.0-1.0)
[2024-11-05 18:00] LABS: BUN 9 mg/dl (9-23)
[2024-11-05] MEDS ORDERED: POTASSIUM CHLORIDE 20 MEQ TAB PO ONE (18:20)
[2024-11-05] MEDS ORDERED: INSULIN REGULAR, HUMAN 1 UNIT/0.01 ML IV ONE (18:40)
[2024-11-05 18:59] LABS: BACTERIA 2+
== END 2024-11-05 19:11 | disposition home or self-care (01) ==
LOC: ED 16:52
PROVIDERS: Emergency Medicine
DX: R11.2 Nausea with vomiting, unspecified (principal); R19.7 Diarrhea, unspecified; R53.83 Other fatigue; E11.9 Type 2 diabetes mellitus without complications; F41.9 Anxiety disorder, unspecified; G43.909 Migraine, unspecified, not intractable, without status migrainosus; I10 Essential (primary) hypertension; F90.9 Attention-deficit hyperactivity disorder, unspecified type; K21.9 Gastro-esophageal reflux disease without esophagitis; F32.A Depression, unspecified; Z90.710 Acquired absence of both cervix and uterus; Z88.1 Allergy status to other antibiotic agents; Z88.5 Allergy status to narcotic agent; Z88.8 Allergy status to other drugs, medicaments and biological substances; Z91.040 Latex allergy status; Z98.890 Other specified postprocedural states

== ENCOUNTER → 2024-12-03 | Outpatient (CLI) | payer OTHER ==
[2024-12-03 10:12] LABS: BUN 6 mg/dl (9-23); LDL CHOLESTEROL 126 mg/dL (9-159); SGPT/ALT 52 U/L (5-49)
== END | disposition home or self-care (01) ==
LOC: LAB 08:21
PROVIDERS: ATTEND Family Medicine
DX: Z20.5 Contact with and (suspected) exposure to viral hepatitis (principal); E87.6 Hypokalemia; E11.9 Type 2 diabetes mellitus without complications